=== PATIENT | female | born 1960 | race Caucasian/White ===

== ENCOUNTER → 2016-03-08 | Outpatient (CLI) | payer OTHER ==
[~2016-03-08] MED LIST: APIDRA100 UNIT/1 SC; ASPIR 8181 M1 PO; ASPIRIN81 M1 PO; ATORVASTATIN CA40 MG PO; BENAZEPRIL HCL40 MG PO; BYETTA10 MCG/0.0 SQ; CARTIA XT240 MG PO; CLOPIDOGREL75 MG PO; COREG12.5 M1 PO; DAILY VALUE1 EACH PO; DAILY VITAMIN1 EAC8 PO; DAILY VITE1 EAC1 PO; DILTIAZEM 24HR240 MG PO; FLEXERIL10 MG PO; GLUCOPHAGE1000 MG PO; GLUCOPHAGE850 MG PO; HYDROCHLOROTH12.5 M3 PO; LANTUS 3 M100 UNITS1 SC; LO-DOSE ASPIRIN81 M1 PO; LOTENSIN40 MG PO; MAGNESIUM OXID200 MG PO; MAGNESIUM100 MG PO; METFORMIN HCL1000 MG PO; MICROZIDE12.5 M1 PO; NAPROSYN500 MG PO; NEURONTIN300 MG PO; NITROSTAT0.4 MG SL; NOVOLIN N100 UNITS/ SC; NOVOLIN,HU100 UNITS1 SC; PERCOCET 5/31 TABLET PO; PLAVIX75 MG PO; TYLENOL WITH C1 EACH PO; VITAMIN D400 UNI1 PO
== END | disposition home or self-care (01) ==
LOC: RAD 08:09
DX: I70.219 Atherosclerosis of native arteries of extremities with intermittent claudication, unspecified extremity (principal); Z79.01 Long term (current) use of anticoagulants
CPT/HCPCS: 75635

== ENCOUNTER → 2016-04-07 | Outpatient (CLI) | payer OTHER | END | disposition home or self-care (01) | LOC: RAD 15:28 | DX: R51 Headache (principal) | CPT/HCPCS: 70450 ==

== ENCOUNTER → 2016-05-30 | Outpatient (CLI) | payer OTHER | END | disposition home or self-care (01) | LOC: RAD 14:16 | PROC: 009U3ZZ Drainage of Spinal Canal, Percutaneous Approach (ICD-10-PCS; principal; 2016-05-30) | DX: H47.10 Unspecified papilledema (principal) | CPT/HCPCS: 62270; 77003; 82945; 83916 90; 84157; 87070; 87205; 87210; 88108 ==

== ENCOUNTER 2016-06-21 21:24 | Observation (INO) | payer OTHER ==
[~2016-06-21] VITALS: Ht 157.5 cm; Wt 98.2 kg
[2016-06-21 21:57] LABS: HEMATOCRIT 38.8 % (36.0-46.0); MCH 30.3 PG (29.0-34.0); MCHC 32.7 G/DL (30.0-36.0); MCV 92.6 FL (83-99); MEAN PLAT.VOLUME 10.4 uM^3 (9.5-12.4); PLATELET COUNT 247 K/uL (156-360); RBC DIS.WIDTH-CV 12.9 % (11.8-14.6); RBC DIS.WIDTH-SD 43.3 % (39-53); RED BLOOD COUNT 4.19 M/uL (3.80-5.20); WHITE BLOOD COUNT 8.2 K/uL (4.1-10.2)
[2016-06-21 22:13] LABS: CHLORIDE 104 mEq/L (99-109); POTASSIUM 4.8 mEq/L (3.7-5.4); SODIUM 139 mEq/L (136-147)
[2016-06-21 22:16] LABS: ANION GAP 9 MEQ/L (2-14)
[2016-06-21 22:18] LABS: GFR ESTIMATE (CALCULATED) 55 mL/min/
[2016-06-21 22:19] LABS: UREA NITROGEN (BUN) 16 mg/dL (9-23)
[2016-06-21 22:32] LABS: GLUCOSE 480 mg/dL (70-99)
[2016-06-21 23:24] LABS: TROP-I INTERPRETATION NEGATIVE; TROPONIN-I < 0.01 ng/mL (0.0-0.30)
[2016-06-22 00:26] LABS: POINT-OF-CARE METER ID UU14100415
[2016-06-22] MEDS ORDERED: NOVOLIN,HU100 UNITS1 SC (01:19)
[2016-06-22] MEDS ORDERED: MAGNESIUM400 M1 PO (01:20)
[2016-06-22] MEDS ORDERED: TYLENOL EXTRA500 MG PO (01:20)
[2016-06-22] MEDS ORDERED: LANTUS 10100 UNITS/ SC ×2 (01:20)
[2016-06-22 03:13] VITALS: BP 140/62
[2016-06-22 05:30] LABS: TROP-I INTERPRETATION NEGATIVE; TROPONIN-I 0.01 ng/mL (0.0-0.30)
[2016-06-22 06:50] LABS: POINT-OF-CARE METER ID UU13113831
[2016-06-22 08:43] LABS: POINT-OF-CARE METER ID UU14162513
[2016-06-22 12:20] VITALS: BP 121/57
[2016-06-22 12:44] LABS: POINT-OF-CARE METER ID UU13113831
[2016-06-22 13:07] LABS: ANION GAP 6 MEQ/L (2-14); CHLORIDE 105 MEQ/L (99-109); GFR ESTIMATE (CALCULATED) > 59 mL/min/; GLUCOSE 246 mg/dL (70-99); SAMPLE HEMOLYSIS CHECK 0; SAMPLE ICTERIC CHECK 0; SAMPLE LIPEMIA CHECK 0; SODIUM 139 MEQ/L (136-147); UREA NITROGEN (BUN) 10 mg/dL (9-23)
[2016-06-22 13:18] LABS: TROP-I INTERPRETATION NEGATIVE; TROPONIN-I < 0.01 ng/mL (0.0-0.30)
[2016-06-22 15:16] VITALS: BP 130/63
[2016-06-22 17:21] LABS: POINT-OF-CARE METER ID UU13113831
[2016-06-22 20:50] LABS: POINT-OF-CARE METER ID UU14162513
[2016-06-22 21:52] VITALS: BP 154/69
[2016-06-23] VITALS: BP 121/58
[2016-06-23 03:17] VITALS: BP 128/56
[2016-06-23 06:04] LABS: ANION GAP 6 MEQ/L (2-14); CHLORIDE 109 MEQ/L (99-109); GFR ESTIMATE (CALCULATED) > 59 mL/min/; GLUCOSE 158 mg/dL (70-99); POTASSIUM 3.7 MEQ/L (3.7-5.4); SAMPLE HEMOLYSIS CHECK 0; SAMPLE ICTERIC CHECK 0; SAMPLE LIPEMIA CHECK 0; SODIUM 141 MEQ/L (136-147); UREA NITROGEN (BUN) 10 mg/dL (9-23)
[2016-06-23 08:25] LABS: POINT-OF-CARE METER ID UU14162513
[2016-06-23] MEDS ORDERED: TOPIRAMATE25 MG PO (09:50)
== END 2016-06-23 10:39 | disposition home or self-care (01) ==
LOC: EME 21:24 → 5WEST 06-22 01:07 → EDOF 06-22 01:07 → 5WEST 06-22 02:34
PROVIDERS: Emergency Medicine; Hospitalist; Physician Assistant Medical
DX: R55 Syncope and collapse (principal); G93.2 Benign intracranial hypertension; N17.9 Acute kidney failure, unspecified; H47.10 Unspecified papilledema; G47.33 Obstructive sleep apnea (adult) (pediatric); E66.01 Morbid (severe) obesity due to excess calories; Z68.39 Body mass index [BMI] 39.0-39.9, adult; G43.909 Migraine, unspecified, not intractable, without status migrainosus; E11.40 Type 2 diabetes mellitus with diabetic neuropathy, unspecified; E11.65 Type 2 diabetes mellitus with hyperglycemia; I73.9 Peripheral vascular disease, unspecified; E78.5 Hyperlipidemia, unspecified; M79.7 Fibromyalgia; I25.10 Atherosclerotic heart disease of native coronary artery without angina pectoris; I25.2 Old myocardial infarction; K21.9 Gastro-esophageal reflux disease without esophagitis
CPT/HCPCS: 70496; 70498; 71020; 80048; 82948; 84484; 85027; 85379; 93005; 99281; 99285; G0378; J1650; J1815; J3480; J7030

== ENCOUNTER 2017-01-29 21:12 | Emergency (ER) | payer OTHER ==
[~2017-01-29] VITALS: Ht 157.5 cm; Wt 96.1 kg
[~2017-01-29 21:12] MED LIST changes: +AMOXICILLIN500 MG PO; +LANTUS 10100 UNITS/ SC; +MAGNESIUM400 M1 PO; +TOPIRAMATE25 MG PO; +TYLENOL EXTRA500 MG PO
[2017-01-29 21:38] LABS: HEMATOCRIT 39.2 % (36.0-46.0); MCH 31.1 PG (29.0-34.0); MCHC 33.9 G/DL (30.0-36.0); MCV 91.8 FL (83-99); MEAN PLAT.VOLUME 11.1 uM^3 (9.5-12.4); PLATELET COUNT 292 K/uL (156-360); RBC DIS.WIDTH-CV 12.5 % (11.8-14.6); RBC DIS.WIDTH-SD 41.8 % (39-53); RED BLOOD COUNT 4.27 M/uL (3.80-5.20); WHITE BLOOD COUNT 9.8 K/uL (4.1-10.2)
[2017-01-29 21:48] LABS: CHLORIDE 105 mEq/L (99-109); POTASSIUM 3.6 mEq/L (3.7-5.4); SODIUM 143 mEq/L (136-147)
[2017-01-29 21:50] LABS: GLUCOSE 168 mg/dL (70-99)
[2017-01-29 21:51] LABS: ANION GAP 12 MEQ/L (2-14)
[2017-01-29 21:54] LABS: GFR ESTIMATE (CALCULATED) > 59 mL/min/
[2017-01-29 21:55] LABS: UREA NITROGEN (BUN) 18 mg/dL (9-23)
[2017-01-29 22:02] LABS: TROP-I INTERPRETATION NEGATIVE; TROPONIN-I < 0.01 ng/mL (0.0-0.30)
[2017-01-30 00:06] LABS: TROP-I INTERPRETATION NEGATIVE; TROPONIN-I < 0.01 ng/mL (0.0-0.30)
[2017-01-30] MEDS ORDERED: POTASSIUM CHLO20 ME2 PO (00:55)
[2017-01-30 01:16] VITALS: BP 147/84
== END 2017-01-30 01:20 | disposition home or self-care (01) ==
LOC: EME 21:12
PROVIDERS: Emergency Medicine
DX: I49.3 Ventricular premature depolarization (principal); E11.9 Type 2 diabetes mellitus without complications; I10 Essential (primary) hypertension; I25.2 Old myocardial infarction; Z79.4 Long term (current) use of insulin; Z86.73 Personal history of transient ischemic attack (TIA), and cerebral infarction without residual deficits; M79.7 Fibromyalgia; F32.9 Major depressive disorder, single episode, unspecified; K21.9 Gastro-esophageal reflux disease without esophagitis; Z95.5 Presence of coronary angioplasty implant and graft; Z88.8 Allergy status to other drugs, medicaments and biological substances
CPT/HCPCS: 71020; 80048; 83735; 84484; 85027; 93005; 99281; 99285

== ENCOUNTER 2017-06-08 12:31 | Emergency (ER) | payer OTHER ==
[~2017-06-08] VITALS: Ht 157.5 cm; Wt 100.2 kg
[~2017-06-08 12:31] MED LIST changes: +POTASSIUM CHLO20 ME2 PO
[2017-06-08 14:27] LABS: HEMATOCRIT 39.5 % (36.0-46.0); HEMOGLOBIN 13.6 G/DL (11.9-15.5); MCH 31.6 PG (29.0-34.0); MCHC 34.4 G/DL (30.0-36.0); MCV 91.6 FL (83-99); PLATELET COUNT 270 K/uL (156-360); RBC DIS.WIDTH-CV 12.8 % (11.8-14.6); RBC DIS.WIDTH-SD 42.2 % (39-53); RED BLOOD COUNT 4.31 M/uL (3.80-5.20); WHITE BLOOD COUNT 9.2 K/uL (4.1-10.2)
[2017-06-08 14:37] LABS: CHLORIDE 105 mEq/L (99-109); POTASSIUM 4.4 mEq/L (3.7-5.4); SODIUM 140 mEq/L (136-147)
[2017-06-08 14:38] LABS: GLUCOSE 386 mg/dL (70-99)
[2017-06-08 14:43] LABS: CREATININE 0.8 mg/dL (0.6-1.3); GFR ESTIMATE (CALCULATED) > 59 mL/min/; UREA NITROGEN (BUN) 16 mg/dL (9-23)
[2017-06-08 14:48] LABS: TROP-I INTERPRETATION NEGATIVE; TROPONIN-I 0.01 ng/mL (0.0-0.30)
[2017-06-08 17:52] LABS: APPEARANCE CLEAR ((CLEAR)); BILIRUBIN NEGATIVE; BLOOD NEGATIVE; COLOR YELLOW ((YELLOW)); GLUCOSE (STRIP) 50; KETONES NEGATIVE; LEUKOCYTES NEGATIVE; NITRITE NEGATIVE; PROTEIN (STRIP) NEGATIVE; SPECIFIC GRAVITY 1.023 (1.000-1.030); UCUL ADDED? NO; UROBILINOGEN 0.2 MG/DL (0.2-1.0)
[2017-06-08] MEDS ORDERED: MOTRIN800 MG PO (18:25)
[2017-06-08] MEDS ORDERED: STOOL SOFTENER100 MG PO (18:25)
[2017-06-08] MEDS ORDERED: VOLTAREN 1% GE100 GM TP (18:25)
[2017-06-08] MEDS ORDERED: MIRALAX17 GM PO (18:25)
[2017-06-08 18:53] VITALS: BP 157/71
== END 2017-06-08 18:54 | disposition home or self-care (01) ==
LOC: EME 12:31
PROVIDERS: Nurse Practitioner Family
DX: M54.5 Low back pain (principal); K59.00 Constipation, unspecified; K57.30 Diverticulosis of large intestine without perforation or abscess without bleeding; E11.9 Type 2 diabetes mellitus without complications; I10 Essential (primary) hypertension; I25.10 Atherosclerotic heart disease of native coronary artery without angina pectoris; K21.9 Gastro-esophageal reflux disease without esophagitis; M79.7 Fibromyalgia; I25.2 Old myocardial infarction; F32.9 Major depressive disorder, single episode, unspecified; Z95.5 Presence of coronary angioplasty implant and graft; Z86.73 Personal history of transient ischemic attack (TIA), and cerebral infarction without residual deficits; Z87.442 Personal history of urinary calculi; Z90.710 Acquired absence of both cervix and uterus; Z79.4 Long term (current) use of insulin; Z79.84 Long term (current) use of oral hypoglycemic drugs; Z79.82 Long term (current) use of aspirin; Z88.8 Allergy status to other drugs, medicaments and biological substances; Z91.02 Food additives allergy status
CPT/HCPCS: 71046; 74176; 80048; 81003; 84484; 85027; 93005; 99281; 99285

== ENCOUNTER 2017-07-31 18:48 | Emergency (ER) | payer OTHER ==
[~2017-07-31] VITALS: Ht 160 cm; Wt 102.2 kg
[~2017-07-31 18:48] MED LIST changes: +MIRALAX17 GM PO; +MOTRIN800 MG PO; +STOOL SOFTENER100 MG PO; +VOLTAREN 1% GE100 GM TP
[2017-07-31 22:21] VITALS: BP 126/74
== END 2017-07-31 22:22 | disposition home or self-care (01) ==
LOC: EME 18:48
DX: R60.0 Localized edema (principal); M79.605 Pain in left leg; M79.7 Fibromyalgia; I10 Essential (primary) hypertension; E11.9 Type 2 diabetes mellitus without complications; K21.9 Gastro-esophageal reflux disease without esophagitis; I25.2 Old myocardial infarction; F32.9 Major depressive disorder, single episode, unspecified; Z86.73 Personal history of transient ischemic attack (TIA), and cerebral infarction without residual deficits; Z87.442 Personal history of urinary calculi; Z90.710 Acquired absence of both cervix and uterus; Z79.4 Long term (current) use of insulin; Z88.5 Allergy status to narcotic agent; Z88.8 Allergy status to other drugs, medicaments and biological substances
CPT/HCPCS: 93971; 99281; 99283

== ENCOUNTER → 2017-10-10 | Outpatient (CLI) | payer OTHER | END | disposition home or self-care (01) | LOC: RAD 09:15 | DX: N28.1 Cyst of kidney, acquired (principal); K76.89 Other specified diseases of liver; K86.89 Other specified diseases of pancreas; Q61.9 Cystic kidney disease, unspecified | CPT/HCPCS: 74183 ==